=== PATIENT | female | born 1940 | race American Indian/Alaskan Native ===

== ENCOUNTER 2016-09-06 07:47 | Day surgery (SDC) | payer MEDICARE ==
[2016-09-06 08:15] VITALS: BMI 34.1
[2016-09-06] MEDS ORDERED: Lactated Ringer's 500 ML IV ONE (09:40)
[2016-09-06] MEDS ORDERED: Propofol 10 mg/ml Inj (20 ML) ONE (09:44)
--- NOTE | 2016-09-06 09:45 | CP.SDSHP ---
Same Day Surgery H & P - History Proposed Procedure: colonoscopy Pre-Op Diagnosis: rectal bleeding - Previous Medical/Surgical History Cardiac: Hypertension, Other (hypercholesterolemia) Misc: Other (Duodenal carcinoid resected, diverticulosis, DJD, ) Previous Surgical History: Whipple procedure. Lap Cholecystectomy - Allergies Allergies: Allergies No Known Allergies Allergy (Verified 09/06/16 08:15) - Physical Exam Vital Signs: Vital Signs 09/06/16 08:41 Temperature 98.7 F Pulse Rate 74 Respiratory 19 Rate Blood Pressure 132/62 O2 Sat by Pulse 99 Oximetry Mental Status: Alert & Oriented x3 Neuro: WNL Heart: WNL Lungs: WNL GI: WNL (well healed midline and ruq scars) - Impression Impression: rectal bleeding Pt. Evaluated Today:Candidate for Anesthesia & Procedure: Yes - Date & Time Date: 09/06/16 Time: 09:45 Short Stay Discharge - Short Stay Discharge Admitting Diagnosis/Reason for Visit: GASTROINTESTINAL HEMORRHAGE, UNSPECIFIED, DVRTCLOS Disposition: HOME/ ROUTINE
[2016-09-06 09:57] VITALS: O2SAT 100
[2016-09-06 11:02] VITALS: TEMP 98.8
[2016-09-06 11:08] VITALS: BP 121/65; PULSE 65; RESP 17
== END 2016-09-06 11:21 | disposition home or self-care (01) ==
LOC: C.ENDO 07:47
PROVIDERS: ATTEND Internal Medicine Gastroenterology
DX: K57.30 Diverticulosis of large intestine without perforation or abscess without bleeding (principal); I10 Essential (primary) hypertension; E78.00 Pure hypercholesterolemia, unspecified; E78.5 Hyperlipidemia, unspecified; M19.90 Unspecified osteoarthritis, unspecified site; Z79.82 Long term (current) use of aspirin; E66.9 Obesity, unspecified; Z68.34 Body mass index [BMI] 34.0-34.9, adult; K64.8 Other hemorrhoids
CPT/HCPCS: 45378; J2704; J7120

== ENCOUNTER 2017-07-24 14:51 | Emergency (ER) | payer MEDICARE ==
[2017-07-24 14:51] VITALS: BMI 34.1
[2017-07-24 15:09] VITALS: RESP 20
--- NOTE | 2017-07-24 15:43 | C.PDOC ---
History Of Present Illness <Sarbjit Vizcaino - Last Filed: 07/24/17 16:25> <Arun Giang - Last Filed: 07/24/17 18:49> 77 year old F with hx of HTN, HLD presenting after having a fall outside of her home this afternoon at 2pm. This is the patient's first and only fall reported by her and the family at bedside. She states she tripped on her own feet and this provoked the fall. She fell on an outstretched right hand and did hit her head on the floor, right above the right eyebrow. There is a small laceration at this point of contact. She complains only of localized pain along this cut but denies headache, nausea, vomiting, weakness, numbness, tingling. No loss of consciousness. pmhx htn hld pshx denied meds as per mar allergies nkda soc hx lives alone, no tobacco/alcohol/drugs (Sarbjit Vizcaino) - HPI Onset/Duration Of Symptoms: Hrs (2) Location Of Injury: Right: Head (above brow) Severity: Mild - Fall Fall:Prior To Injury: Slipped <Sarbjit Vizcaino - Last Filed: 07/24/17 16:25> <Arun Giang - Last Filed: 07/24/17 18:49> - HPI Time Seen by Provider: 07/24/17 15:18 Chief Complaint (Nursing): Abnormal Skin Integrity Past Medical History - Medical History PMH: Arthritis (KNEES AND BACK), HTN, Hypercholesterolemia Denies: Colonic Polyps, Chronic Kidney Disease, TIA Surgical History: Endoscopy Family History: States: No Known Family Hx - Social History Hx Tobacco Use: No Hx Alcohol Use: No Hx Substance Use: No - Immunization History Hx Tetanus Toxoid Vaccination: No Hx Influenza Vaccination: No Hx Pneumococcal Vaccination: No <Sarbjit Vizcaino - Last Filed: 07/24/17 16:25> Vital Signs: Last Vital Signs Temp 97.6 F 07/24/17 18:00 Pulse 85 07/24/17 18:00 Resp 20 07/24/17 18:00 BP 154/80 H 07/24/17 18:00 Pulse Ox 100 07/24/17 18:00 - [facility] Procedures APPLICATION OF SPLINT (12/10/06) ESOPHAGOGASTRODUODENOSCOPY [EGD] W/CLOSED BIOPSY (04/08/14) TETANUS TOXOID ADMINIST (12/10/06) Review Of Systems Eyes: Negative for: Vision Change Cardiovascular: Negative for: Chest Pain, Palpitations, Light Headedness Respiratory: Negative for: Cough, Shortness of Breath Gastrointestinal: Negative for: Nausea, Vomiting Genitourinary: Negative for: Dysuria Neurological: Positive for: Headache (localized pain to are of laceration above right brow). Negative for: Weakness, Numbness <Sarbjit Vizcaino S - Last Filed: 07/24/17 16:25> Physical Exam - Physical Exam Appears: No Acute Distress Skin: Warm, Dry Head: Laceration (above right brow- 1.5cm) Throat: Normal, No Erythema, No Exudate Cardiovascular: Rhythm Regular Respiratory: Normal Breath Sounds, No Rales, No Rhonchi, No Wheezing Extremity: Other (very mild skin abrasion on dorsal aspect of right hand) Neurological/Psych: Oriented x3, Normal Speech, Normal Cognition, Normal Cranial Nerves, Normal Motor, Normal Sensation <Sarbjit Vizcaino S - Last Filed: 07/24/17 16:25> - Physical Exam Neck: Normal <Arun Giang M - Last Filed: 07/24/17 18:49> ED Course And Treatment O2 Sat by Pulse Oximetry: 99 <Sarbjit Vizcaino S - Last Filed: 07/24/17 16:25> Procedure: Wound Repair - Time Performed Time Performed: 18:40 - Time Out Time Out: Side verified, Site verified - Procedure Procedure: Wound Repair: right eyebrow laceration - Consent Obtained Consent obtained: Verbal - Performed by Performed by: Attending Physician - Indications Indication(s):: Laceration, Incision wound - Location Location:: Right, Eyebrow Depth:: Epidermis - Debris Debris:: None - Irrigated Irrigated with ml of normal saline: 200 - Wound repair method [place]:: Tissue glue, Steri-strips - Muscle repiar layer closed with Muscle repair layer closed with:: Tetanus ordered - Patient tolerated procedure Patient Tolerated Procedure:: Well <Arun Giang M - Last Filed: 07/24/17 18:49> Medical Decision Making <Sarbjit Vizcaino S - Last Filed: 07/24/17 16:25> <Arun Giang M - Last Filed: 07/24/17 18:49> Medical Decision Making: Head CT w/o contrast was ordered to evaluate for head trauma. Radiograph of the RUE was utilized to evaluate for wrist/hand trauma. (Sarbjit Vizcaino) Disposition - Disposition Disposition Time: 20:00 <Sarbjit Vizcaino - Last Filed: 07/24/17 16:25> Discussed With : Eusebio Peraza Counseled Patient/Family Regarding: Studies Performed, Diagnosis - Disposition Disposition Time: 19:00 <Arun Giang - Last Filed: 07/24/17 18:49> - Disposition Condition: STABLE Forms: [facility] (Slovak) - Clinical Impression Clinical Impression: Laceration of forehead Critical Care Time Physician Patient Turnover Patient Signed Over To: Eusebio Peraza Handoff Comments: pending ct wrist and disposition <Arun Giang M - Last Filed: 07/24/17 18:49>
--- NOTE | 2017-07-24 16:26 | RAD ---
PROCEDURE: Right Wrist Radiographs. HISTORY: fall COMPARISON: None. FINDINGS: BONES: A 3 mm well corticated ossification projects near the ulnar styloid. An osseous avulsion injury probable with this precise chronicity unknown. Some bordering ulnar articular sided subchondral sclerosis and cystic changes however are noted. A punctate 1 mm chip fracture fragment is lateral to the ulnar metaphysis again chronicity unknown. A 3 mm dictation projects over the dorsal the proximal carpus -a triquetrum fracture fragment here is compatible with this. This fracture may be that projecting near the ulnar styloid. On the frontal view frontal oblique views. JOINTS: Radiocarpal intercarpal and carpal metacarpal joint arthrosis SOFT TISSUES: Soft tissue swelling volar and dorsal aspect OTHER FINDINGS: None. IMPRESSION: Well corticated ossifications compatible with osseous fracture avulsions these border the ulnar styloid and dorsal triquetrum -their individual precise chronicity is unknown -an acute and/or acute on chronic injury ir are consistent with this. Clinical correlation with point tenderness. If needed, CT wrist imaging reading mapping to determine the number of avulsed fracture fragments and their positions be obtained. .
--- NOTE | 2017-07-24 17:40 | CT ---
PROCEDURE: CT HEAD WITHOUT CONTRAST. HISTORY: fall COMPARISON: None available. TECHNIQUE: Axial computed tomography images were obtained through the head/brain without intravenous contrast. Radiation dose: Total exam DLP = 816.51 mGy-cm. This CT exam was performed using one or more of the following dose reduction techniques: Automated exposure control, adjustment of the mA and/or kV according to patient size, and/or use of iterative reconstruction technique. FINDINGS: HEMORRHAGE: No intracranial hemorrhage. BRAIN: No mass effect or edema. The pretty-white matter differentiation appears grossly intact. Please note that MRI with diffusion imaging is more sensitive in the detection of acute ischemic event. VENTRICLES: No hydrocephalus. CALVARIUM: Unremarkable. PARANASAL SINUSES: Unremarkable as visualized. No significant inflammatory changes. MASTOID AIR CELLS: Unremarkable as visualized. No inflammatory changes. OTHER FINDINGS: None. IMPRESSION: No acute intracranial pathology identified.
[2017-07-24 18:32] VITALS: BP 154/80; PULSE 85; TEMP 97.6; O2SAT 100
--- NOTE | 2017-07-24 19:28 | CT ---
EXAM: CT Right Upper Extremity Without Intravenous Contrast, Wrist EXAM DATE/TIME: Exam ordered 07/24/2017 4:47 PM CLINICAL HISTORY: 77 years old, female; Injury or trauma; Fall; Initial encounter; Abrasion; Wrist; Right; Additional info: Fall - right wrist image TECHNIQUE: Axial computed tomography images of the right wrist without intravenous contrast. All CT scans at this facility use one or more dose reduction techniques, viz.: automated exposure control; ma/kV adjustment per patient size (including targeted exams where dose is matched to indication; i.e. head); or iterative reconstruction technique. Coronal and sagittal reformatted images were created and reviewed. COMPARISON: No relevant prior studies available. FINDINGS: Bones/joints: There is narrowing of the first carpometacarpal joint. Small marginal osteophytes are present. There is widening of the scapholunate interval which measures 5.2 mm. There is narrowing of the radiocarpal joint. Small subchondral cyst is noted along the radial side of the radiocarpal joint. There is an accessory ossicle adjacent to the ulnar styloid. No acute fracture. No dislocation. Soft tissues: Unremarkable. IMPRESSION: 1. Widening of the scapholunate interval implying tear of the scapholunate ligament. 2. No acute fracture.
== END 2017-07-24 18:00 | disposition left against medical advice (07) ==
LOC: C.ER 14:51
DX: S01.111A Laceration without foreign body of right eyelid and periocular area, initial encounter (principal); W01.0XXA Fall on same level from slipping, tripping and stumbling without subsequent striking against object, initial encounter; I10 Essential (primary) hypertension; E78.00 Pure hypercholesterolemia, unspecified